=== PATIENT | female | born 1990 | race Caucasian/White ===

== ENCOUNTER 2017-01-31 00:17 | Emergency (ER) | payer BC ==
--- NOTE | 2017-01-31 01:42 | ED ---
Upper Extremity Pain - HPI Summary HPI Summary: Patient presents with right forearm pain after it was accidentally shut in the front door of her home three hours ago. The pain has increased and she has begun to notice swelling and bruising. She worries it is broken. Sensation is intact. - History of Current Complaint Chief Complaint: EDExtremityUpper Stated Complaint: RT ARM INJURY Time Seen by Provider: 01/31/17 01:32 Hx Obtained From: Patient Mechanism Of Injury: Blunt Trauma Onset/Duration: Started Hours Ago Timing: Constant Severity Initially: Severe Severity Currently: Severe Pain Location: Forearm - right Character: Sharp, Aching Aggravating Factor(s): Movement Alleviating Factor(s): Nothing Associated Signs & Symptoms: Positive: Swelling, Bruising Related History: Dominant Hand Right - Allergies/Home Medications Allergies/Adverse Reactions: Allergies Allergy/AdvReac Type Severity Reaction Status Date / Time No Known Allergies Allergy Verified 04/25/16 02:24 PMH/Surg Hx/FS Hx/Imm Hx Endocrine/Hematology History: Denies: Hx Diabetes, Hx Thyroid Disease Cardiovascular History: Denies: Hx Congestive Heart Failure, Hx Hypertension, Hx Pacemaker/ICD Respiratory History: Reports: Hx Asthma - athlectic induced as a child Denies: Hx Chronic Obstructive Pulmonary Disease (COPD) GI History: Denies: Hx Ulcer History: Denies: Hx Renal Disease Sensory History: Denies: Hx Hearing Aid Psychiatric History: Reports: Hx Anxiety Denies: Hx Panic Disorder Infectious Disease History: No Infectious Disease History: Denies: Hx Hepatitis, Hx Human Immunodeficiency Virus (HIV), Traveled Outside the [place] in Last 30 Days - Family History Known Family History: Positive: None Family History: R & n/C - Social History Occupation: Employed Full-time Lives: With Family Alcohol Use: None Hx Substance Use: No Substance Use Type: Reports: None Hx Tobacco Use: No Smoking Status (MU): Never Smoked Tobacco Review of Systems Positive: Myalgia, Edema - righ forearm Positive: Bruising Negative: Weakness, Paresthesia, Numbness All Other Systems Reviewed And Are Negative: Yes Physical Exam Triage Information Reviewed: Yes Vital Signs On Initial Exam: Initial Vitals Temp Pulse Resp BP Pulse Ox 98.6 F 94 18 99/72 99 01/31/17 00:22 01/31/17 00:22 01/31/17 00:22 01/31/17 00:22 01/31/17 00:22 Vital Signs Reviewed: Yes Appearance: Positive: Well-Appearing, Well-Nourished, Pain Distress Skin: Positive: Warm, Skin Color Reflects Adequate Perfusion, Dry, Soft Head/Face: Positive: Normal Head/Face Inspection Eyes: Positive: EOMI, CATHERINE, Conjunctiva Clear ENT: Positive: Hearing grossly normal Respiratory/Lung Sounds: Positive: Breath Sounds Present Cardiovascular: Positive: RRR Musculoskeletal: Positive: Strength/ROM Intact - FROM right elbow, wrist and hand, Pain @ - TTP dorsum of right mid forearm; pain with right wrist extension , Edema Right - dorsum of right mid forearm Neurological: Positive: Sensory/Motor Intact, Alert, Oriented to Person Place, Time, NV Bundle Intact Distally Psychiatric: Positive: Affect/Mood Appropriate AVPU Assessment: Alert Diagnostics - Vital Signs Vital Signs Temp Pulse Resp BP Pulse Ox 01/31/17 00:22 98.6 F 94 18 99/72 99 - Laboratory Lab Statement: Any lab studies that have been ordered have been reviewed, and results considered in the medical decision making process. - Radiology No standard instances Xray Interpretation: No Acute Changes Radiology Interpretation Completed By: Radiologist Course/Dx - Diagnoses Differential Diagnosis/HQI/PQRI: Positive: Arthritis, Bursitis, Contusion, Fracture (Closed), Hematoma, Strain, Sprain Provider Diagnoses: Contusion of right forearm Discharge - Discharge Plan Condition: Stable Disposition: HOME Patient Education Materials: Contusion in Adults (ED) Forms: *Work Release Referrals: Darlyn Garcia MD [Primary Care Provider] - Additional Instructions: Please use ibuprofen 600mg three times daily with meals for the next 3-5 days and elevate your arm above your heart to decrease swelling and pain. Use your arm as pain allows. Follow-up with your primary care provider if your symptoms do not begin to improve in then next 7-10 days. Return to the emergency department if symptoms worsen.
[2017-01-31 02:05] VITALS: BP 101/68
--- NOTE | 2017-01-31 07:52 | RAD ---
INDICATION: Right forearm bruising after getting arm "caught in a door" TECHNIQUE: 2 views of the right forearm were obtained. FINDINGS: The bones are normal alignment. Joint spaces appear maintained. No fracture is seen. IMPRESSION: No radiographic evidence of acute fracture or dislocation. If the patient's symptoms persist, follow-up imaging is recommended.
== END 2017-01-31 02:03 | disposition home or self-care (01) ==
LOC: ED 00:17
DX: S50.11XA Contusion of right forearm, initial encounter (principal); M79.631 Pain in right forearm; R60.0 Localized edema; W22.8XXA Striking against or struck by other objects, initial encounter; Y93.9 Activity, unspecified; Y92.89 Other specified places as the place of occurrence of the external cause
CPT/HCPCS: 99281

== ENCOUNTER 2017-04-25 19:05 | Emergency (ER) | payer BC ==
[2017-04-25 19:18] VITALS: BP 110/77
== END 2017-04-25 20:35 | disposition left against medical advice (07) ==
LOC: ED 19:05
DX: R51 Headache (principal); R21 Rash and other nonspecific skin eruption; Z53.21 Procedure and treatment not carried out due to patient leaving prior to being seen by health care provider

== ENCOUNTER 2017-05-09 20:27 | Observation (INO) | payer BC, OTHER ==
[2017-05-09] MEDS ORDERED: Acetaminophen TAB* 325 MG PO ONE (20:58)
[2017-05-09] MEDS ORDERED: NS 0.9% 1000 ML* 1,000 ML IV ONE (20:58)
[2017-05-09] MEDS: Ondansetron INJ* 2 MG/ML VIAL IV ONE ×3 (21:26→21:34)
--- NOTE | 2017-05-09 21:31 | ED ---
I, Oh,Adithya, scribed for Elijah Silvestre MD on 05/09/17 at 2059 . HPI Febrile Illness - HPI Summary HPI Summary: This 26 y/o female presents to ED for fever this morning. Positive chills, general myalgia, nausea, low back pain, and 2-days-old intermittent GUTIERREZ. Pt took APAP this morning and again this afternoon without much relief. Elevated temperature of 103.4 F is noted at triage. PMHx includes exercise-induced asthma as a child and with . Plan of care involving fever control and NS resuscitation is discussed with pt and mother present at bedside, and she is agreeable. - History of Current Complaint Chief Complaint: EDGeneral Time Seen by Provider: 05/09/17 20:52 Hx Obtained From: Patient, Medical Records Onset/Duration: Started Hours Ago, Atraumatic, Still Present Timing: Constant Pain Intensity: 10 Pain Scale Used: 0-10 Numeric Associated Signs and Symptoms: Chills, Headache, Myalgia - general, Nausea, Other: - back pain - Allergy/Home Medications Allergies/Adverse Reactions: Allergies Allergy/AdvReac Type Severity Reaction Status Date / Time No Known Allergies Allergy Verified 04/25/16 02:24 PMH/Surg Hx/FS Hx/Imm Hx Endocrine/Hematology History: Denies: Hx Diabetes, Hx Thyroid Disease Cardiovascular History: Denies: Hx Congestive Heart Failure, Hx Hypertension, Hx Pacemaker/ICD Respiratory History: Reports: Hx Asthma - athlectic induced as a child Denies: Hx Chronic Obstructive Pulmonary Disease (COPD) GI History: Denies: Hx Ulcer History: Denies: Hx Renal Disease Sensory History: Denies: Hx Hearing Aid Psychiatric History: Reports: Hx Anxiety Denies: Hx Panic Disorder Infectious Disease History: Denies: Hx Hepatitis, Hx Human Immunodeficiency Virus (HIV), Traveled Outside the [place] in Last 30 Days - Family History Known Family History: Positive: Hypertension - positive to grandfather - Social History Alcohol Use: None Hx Substance Use: No Substance Use Type: Reports: None Hx Tobacco Use: No Smoking Status (MU): Never Smoked Tobacco Review of Systems Positive: Fever, Chills Positive: Nausea. Negative: Vomiting Positive: Myalgia - general, Other - low back pain Positive: Headache All Other Systems Reviewed And Are Negative: Yes Physical Exam Triage Information Reviewed: Yes Vital Signs On Initial Exam: Initial Vitals Temp Pulse Resp BP Pulse Ox 103.4 F 127 18 98/59 97 05/09/17 20:30 05/09/17 20:30 05/09/17 20:30 05/09/17 20:30 05/09/17 20:30 Vital Signs Reviewed: Yes Appearance: Positive: Well-Appearing, No Pain Distress Skin: Positive: Warm, Dry Eyes: Positive: CATHERINE ENT: Positive: Pharynx normal, TMs normal Neck: Positive: Supple, Nontender. Negative: Nuchal Rigidity Respiratory/Lung Sounds: Positive: Clear to Auscultation, Breath Sounds Present Cardiovascular: Positive: RRR Abdomen Description: Positive: Nontender, Soft Bowel Sounds: Positive: Present Musculoskeletal: Positive: Strength/ROM Intact Neurological: Positive: Alert, Oriented to Person Place, Time, Normal Gait Psychiatric: Positive: Affect/Mood Appropriate Diagnostics - Vital Signs Vital Signs Temp Pulse Resp BP Pulse Ox 05/09/17 20:30 103.4 F 127 18 98/59 97 - Laboratory Result Diagrams: 05/09/17 21:20 05/09/17 21:20 Lab Statement: Any lab studies that have been ordered have been reviewed, and results considered in the medical decision making process. - Radiology CXR Xray Interpretation: No Acute Changes - Likely poor inspiratory effort Radiology Interpretation Completed By: Radiologist Re-Evaluation - Re-Evaluation First Eval Change: Improved - fever down hr down though still hyporensive, non toxic appearing, d/w hospitalist, will admit Course/Dx - Course Assessment/Plan: This 26 y/o female presents to ED for a day old fever since this morning. Elevated temperature of 103.4 F is noted at triage. Blood work is wnl except for elevated blood glucose of 134 and mildly depressed magnesium level. CXR indicates no acute cardiopulmonary disease but notes poor inspiratory effort. Rapid strep is negative. Pt is given APAP, IV NS, and Zofran IV during the ED course. Temperature is improved down to 98.4 F at 0428 AM but blood pressure is noted hypotensive with 83/43. Hypotensive blood pressure still persists even after 4th Liter of NS IV. Dr. Clark is consulted, and pt is accepted for admission. - Diagnoses Provider Diagnoses: Viral illness - Provider Notifications Discussed Care Of Patient With: Vinod Clark Time Discussed With Above Provider: 05:07 Instructed by Provider To: Admit As Inpatient Discharge - Discharge Plan Condition: Fair Disposition: ADMITTED TO [facility] The documentation as recorded by the Milad mcnally Soohyun accurately reflects the service I personally performed and the decisions made by me, Elijah Silvestre MD.
[2017-05-09 21:34] LABS: Hematocrit 38 % (35-47); Hemoglobin 12.9 g/dl (12.0-16.0); Mean Corpuscular HGB Conc 34 g/dl (31-36); Mean Corpuscular Hemoglobin 29 pg (27-31); Mean Corpuscular Volume 86 fL (80-97); Mean Platelet Volume 9 um3 (7.4-10.4); Red Blood Count 4.43 10^6/ul (4.0-5.4); Red Cell Distribution Width 13 % (10.5-15)
[2017-05-09 21:41] LABS: ALT 9 U/L (7-52); AST 16 U/L (13-39); Albumin 3.7 g/dL (3.2-5.2); Alkaline Phosphatase 35 U/L (34-104); Anion Gap 7 mmol/L (2-11); BUN/Creatinine Ratio 9.9 (8-20); Blood Urea Nitrogen 9 mg/dL (6-24); CO2 Carbon Dioxide 24 mmol/L (22-32); Calcium 8.8 mg/dL (8.6-10.3); Chloride 102 mmol/L (101-111); EGFR African American 96.9 (>60); EGFR Non-African American 75.3 (>60); Globulin 3.5 g/dL (2-4); Glucose 134 mg/dL (70-100); Magnesium 1.8 mg/dL (1.9-2.7); Potassium 3.2 mmol/L (3.5-5.0); Sodium 133 mmol/L (133-145); Total Protein 7.2 g/dL (6.4-8.9)
--- NOTE | 2017-05-09 22:01 | RAD ---
Indication: Fever. 2 views of the chest including dual energy PA views demonstrate no mediastinal shift. Heart is of normal size and configuration. Lung martinez are clear. There is likely poor inspiratory effort with prominent vasculature. When compared to previous exam of September 20, 2013 no significant change is noted. IMPRESSION: No active cardiopulmonary disease is noted. Likely poor inspiratory effort.
[2017-05-09 23:20] LABS: Urine Bilirubin Negative (Negative); Urine Glucose Negative (Negative); Urine Nitrite Negative (Negative)
[2017-05-10] MEDS ORDERED: Ibuprofen TAB* 600 MG PO ONE (00:03)
[2017-05-10] MEDS ORDERED: Ibuprofen TAB* 600 MG ONE (00:04)
[2017-05-10] MEDS ORDERED: NS 0.9% 1000 ML* 1,000 ML IV ONE ×3 (00:10→03:11)
[2017-05-10] MEDS ORDERED: Acetaminophen TAB* 325 MG PO ONE (03:11)
[2017-05-10] MEDS ORDERED: Magnesium Sulfate 2 GM IV* 2 GM/50 ML BAG IVPB ONE (05:33)
[2017-05-10] MEDS ORDERED: Ondansetron INJ* 2 MG/ML VIAL IV PRN (05:34)
[2017-05-10] MEDS ORDERED: Acetaminophen TAB* 325 MG PO PRN (05:34)
[2017-05-10] MEDS ORDERED: Melatonin (NF) 3 MG TAB PO PRN (05:34)
[2017-05-10] MEDS ORDERED: traMADol TAB* 50 MG PO PRN (05:34)
[2017-05-10] MEDS ORDERED: Ibuprofen TAB* 400 MG PO PRN (05:35)
[2017-05-10] MEDS ORDERED: NS 0.9% 1000 ML* 1,000 ML IV SCH (05:45)
--- NOTE | 2017-05-10 05:46 | HP ---
H&P (Free Text) History and Physical: PCP: Mukesh Garcia MD Date/Time of Evaluation: 05/10/2017 0520 CC: malaise HPI: Mrs Valentin is a 26YO female HX migraines who began feeling poorly with a diffuse dull headache 3 days ago without photophobia or exacerbating/ alleviating factors. Yesterday she began having subjective F/C, light sweats, nausea without emesis, malaise, and fatigue. She denies cough, congestion, SOB, B/U/F of urine, changes in bowel/bladder, open wound, rash, or other issues. She denies known sick contacts. This headache is different from her usual in that it is persistent. PMedHx migraines/headaches Ambulatory Orders Nursing to reconcile. Allergies No Known Allergies Allergy (Verified 04/25/16 02:24) PSurgHx section SocHx: no tobacco, alcohol, or recreational drugs; works at [employer]; full code status FamHx: denies ROS: as above, otherwise reviewed and all were negative Constitutional: NAD, normally developed, well-nourished white female vitals: Vital Signs Temp 36.9 C 05/10/17 04:28 Pulse 92 05/10/17 05:00 Resp 14 05/10/17 04:28 BP 86/48 05/10/17 05:00 Pulse Ox 98 05/10/17 05:00 Intake & Output 05/09/17 05/09/17 05/10/17 11:59 23:59 11:59 Intake Total 1000 2000 Balance 1000 1999 Weight 61.235 kg Intake: IV Fluids 1000 1999 HEENM: atraumatic; sclera/conjunctiva: non-icteric/clear; blephara: normal; hearing: clinically intact; oropharynx: clear, mucosa tacky Neck: soft tissue: no nuchal rigidity, no cervical muscle tenderness, full painless ROM of C-spine; thyroid: normal Pulmonary: clear to auscultation bilaterally, good aeration, no accessory muscle use CV: RR/RR, normal S1S2, no carotid bruit, no jugular venous distention, 2+ B DP/ PT, no edema Abdominal: soft, non-distended, non-tender, no rebound/guarding/rigidity, normoactive bowel sounds, no hepatosplenomegaly or masses, no costovertebral angle tenderness Musculoskeletal: general: grossly intact; gait: stable Integumental: normal appearance and texture of exposed skin Psychiatric orientation: AA&O to PPS affect: fatigued mood: cooperarative eye contact: good content: reliable responses: timely insight: good Testing: Lab Results 05/09/17 05/09/17 05/09/17 Range/Units 21:20 21:20 21:20 WBC 9.0 (3.5-10.8) 10^3/ul RBC 4.43 (4.0-5.4) 10^6/ul Hgb 12.9 (12.0-16.0) g/dl Hct 38 (35-47) % MCV 86 (80-97) fL MCH 29 (27-31) pg MCHC 34 (31-36) g/dl RDW 13 (10.5-15) % Plt Count 208 (150-450) 10^3/ul MPV 9 (7.4-10.4) um3 Neut % (Auto) 87.4 H (38-83) % Lymph % (Auto) 3.2 L (25-47) % Brooks % (Auto) 9.0 (1-9) % Eos % (Auto) 0.1 (0-6) % Baso % (Auto) 0.3 (0-2) % Absolute Neuts (auto) 7.9 H (1.5-7.7) 10^3/ul Absolute Lymphs (auto) 0.3 L (1.0-4.8) 10^3/ul Absolute Monos (auto) 0.8 (0-0.8) 10^3/ul Absolute Eos (auto) 0 (0-0.6) 10^3/ul Absolute Basos (auto) 0 (0-0.2) 10^3/ul Absolute Nucleated RBC 0 10^3/ul Nucleated RBC % 0 Sodium 133 (133-145) mmol/L Potassium 3.2 L (3.5-5.0) mmol/L Chloride 102 (101-111) mmol/L Carbon Dioxide 24 (22-32) mmol/L Anion Gap 7 (2-11) mmol/L BUN 9 (6-24) mg/dL Creatinine 0.91 (0.51-0.95) mg/dL Est GFR ( Amer) 96.9 (>60) Est GFR (Non-Af Amer) 75.3 (>60) BUN/Creatinine Ratio 9.9 (8-20) Glucose 134 H (70-100) mg/dL Lactic Acid 1.0 (0.5-2.0) mmol/L Calcium 8.8 (8.6-10.3) mg/dL Magnesium 1.8 L (1.9-2.7) mg/dL Total Bilirubin 0.50 (0.2-1.0) mg/dL AST 16 (13-39) U/L ALT 9 (7-52) U/L Alkaline Phosphatase 35 (34-104) U/L Total Protein 7.2 (6.4-8.9) g/dL Albumin 3.7 (3.2-5.2) g/dL Globulin 3.5 (2-4) g/dL Albumin/Globulin Ratio 1.1 (1-3) Beta HCG, Quant < 0.60 mIU/mL Urine Color Urine Appearance Urine pH (5-9) Ur Specific [place] (1.010-1.030) Urine Protein (Negative) Urine Ketones (Negative) Urine Blood (Negative) Urine Nitrate (Negative) Urine Bilirubin (Negative) Urine Urobilinogen (Negative) Ur Leukocyte Esterase (Negative) Urine Glucose (Negative) Group A Strep Rapid (Negative) 05/09/17 05/09/17 Range/Units 23:05 23:08 WBC (3.5-10.8) 10^3/ul RBC (4.0-5.4) 10^6/ul Hgb (12.0-16.0) g/dl Hct (35-47) % MCV (80-97) fL MCH (27-31) pg MCHC (31-36) g/dl RDW (10.5-15) % Plt Count (150-450) 10^3/ul MPV (7.4-10.4) um3 Neut % (Auto) (38-83) % Lymph % (Auto) (25-47) % Brooks % (Auto) (1-9) % Eos % (Auto) (0-6) % Baso % (Auto) (0-2) % Absolute Neuts (auto) (1.5-7.7) 10^3/ul Absolute Lymphs (auto) (1.0-4.8) 10^3/ul Absolute Monos (auto) (0-0.8) 10^3/ul Absolute Eos (auto) (0-0.6) 10^3/ul Absolute Basos (auto) (0-0.2) 10^3/ul Absolute Nucleated RBC 10^3/ul Nucleated RBC % Sodium (133-145) mmol/L Potassium (3.5-5.0) mmol/L Chloride (101-111) mmol/L Carbon Dioxide (22-32) mmol/L Anion Gap (2-11) mmol/L BUN (6-24) mg/dL Creatinine (0.51-0.95) mg/dL Est GFR ( Amer) (>60) Est GFR (Non-Af Amer) (>60) BUN/Creatinine Ratio (8-20) Glucose (70-100) mg/dL Lactic Acid (0.5-2.0) mmol/L Calcium (8.6-10.3) mg/dL Magnesium (1.9-2.7) mg/dL Total Bilirubin (0.2-1.0) mg/dL AST (13-39) U/L ALT (7-52) U/L Alkaline Phosphatase (34-104) U/L Total Protein (6.4-8.9) g/dL Albumin (3.2-5.2) g/dL Globulin (2-4) g/dL Albumin/Globulin Ratio (1-3) Beta HCG, Quant mIU/mL Urine Color Yellow Urine Appearance Clear Urine pH 6.0 (5-9) Ur Specific [place] 1.012 (1.010-1.030) Urine Protein Negative (Negative) Urine Ketones Trace H (Negative) Urine Blood Negative (Negative) Urine Nitrate Negative (Negative) Urine Bilirubin Negative (Negative) Urine Urobilinogen Negative (Negative) Ur Leukocyte Esterase Negative (Negative) Urine Glucose Negative (Negative) Group A Strep Rapid Negative (Negative) CXR, personally reviewed: IMPRESSION: No active cardiopulmonary disease is noted. Likely poor inspiratory effort. Impression: 26F presenting with what appears a viral syndrome with hypovolemia and 2nd hypotension/tachycardia DIAGNOSIS & PLAN Primary viral syndrome with hypovolemia and 2nd hypotension/tachycardia : IVFs : anti-emetics : monitor : supportive care headache : pain control Admission Rational: observation for dehydration refractory to initial IVFs DVTp: MARGO Code Status: full
[2017-05-10] MEDS: Omeprazole CAP* 20 MG PO SCH (06:09)
[2017-05-10] MEDS: Potassium Chlor TAB* 20 MEQ TAB.ER PO SCH ×3 (06:09→16:28)
[2017-05-10 06:53] LABS: Hematocrit 32 % (35-47); Hemoglobin 11.2 g/dl (12.0-16.0); Mean Corpuscular HGB Conc 35 g/dl (31-36); Mean Corpuscular Hemoglobin 31 pg (27-31); Mean Corpuscular Volume 87 fL (80-97); Mean Platelet Volume 8 um3 (7.4-10.4); Red Blood Count 3.68 10^6/ul (4.0-5.4); Red Cell Distribution Width 13 % (10.5-15); White Blood Count 8.1 10^3/ul (3.5-10.8)
[2017-05-10 07:40] LABS: BUN/Creatinine Ratio 9.6 (8-20); Calcium 7.5 mg/dL (8.6-10.3); EGFR African American 124.9 (>60); EGFR Non-African American 97.1 (>60); Potassium 3.4 mmol/L (3.5-5.0)
[2017-05-10] MEDS: NS 0.9% 1000 ML* 1,000 ML IV SCH (08:34)
--- NOTE | 2017-05-10 09:54 | PN ---
Subjective Date of Service: 05/10/17 Interval History: Ate breakfast, no more nausea. Headache somewhat better. Some chills and sweats last night. Not dizzy or lightheaded while walking. Objective Active Medications: Acetaminophen (Tylenol Tab*) 650 mg PO Q6H PRN PRN Reason: FEVER/PAIN Sodium Chloride (Ns 0.9% 1000 Ml*) 1,000 mls @ 50 mls/hr IV PER RATE [facility] Last Admin: 05/10/17 08:34 Dose: 50 mls/hr Ibuprofen (Motrin Tab*) 400 mg PO Q6H PRN PRN Reason: FEVER/PAIN Omeprazole (Prilosec Cap*) 20 mg PO DAILY@0600 [facility] Last Admin: 05/10/17 06:09 Dose: 20 mg Ondansetron HCl (Zofran Inj*) 4 mg IV Q6H PRN PRN Reason: NAUSEA Potassium Chloride (Klor Con Er Tab*) 40 meq PO Q4H [facility] Stop: 05/10/17 10:01 Last Admin: 05/10/17 06:09 Dose: 40 meq Tramadol HCl (Ultram*) 50 mg PO Q6H PRN PRN Reason: PAIN Vital Signs 05/10/17 05/10/17 05/10/17 05:48 06:09 08:00 Temperature 98.4 F 98.4 F Pulse Rate 84 84 Respiratory 16 16 16 Rate Blood Pressure 83/55 83/55 (mmHg) O2 Sat by Pulse 98 91 Oximetry Oxygen Devices in Use Now: None Appearance: Alert, partly up in bed. In good spirits. Looks comfortable. Eyes: No Scleral Icterus Neck: NL Appearance and Movements; NL JVP, No Thyroid Enlargement, Masses Respiratory: Symmetrical Chest Expansion and Respiratory Effort, Clear to Auscultation, Clear to Percussion Cardiovascular: NL Sounds; No Murmurs; No JVD, RRR, No Edema, - Abdominal: NL Sounds; No Tenderness; No Distention, No Hepatosplenomegaly, - Extremities: No Edema, No Clubbing, Cyanosis, - Skin: No Nodules or Sclerosis, - - BL malar rash Neurological: Alert and Oriented x 3, NL Sensation Result Diagrams: 05/10/17 06:37 05/10/17 06:37 Assess/Plan/Problems-Billing Assessment: - Patient Problems (1) Fever Current Visit: Yes Status: Acute Code(s): R50.9 - FEVER, UNSPECIFIED SNOMED Code(s): 318004439 Comment: Likely viral illness with viral exanthem. Continue supportive care. Add on Lyme serology requested. (2) Migraine Current Visit: Yes Status: Acute Code(s): G43.909 - MIGRAINE, UNSP, NOT INTRACTABLE, WITHOUT STATUS MIGRAINOSUS SNOMED Code(s): 41840642 Comment: Relatively mild, only uses APAP at home, may be other type of headache.
[2017-05-10 14:53] LABS: EBV Response NO
[2017-05-10 16:44] LABS: Mono Internal Control QC Line Present
[2017-05-11] MEDS: NS 0.9% 1000 ML* 1,000 ML IV SCH (04:13)
[2017-05-11] MEDS: Omeprazole CAP* 20 MG PO SCH (05:59)
[2017-05-11 08:09] VITALS: BP 90/53
--- NOTE | 2017-05-11 08:23 | DCNOTE ---
Subjective Date of Service: 05/11/17 Interval History: Still some sore throat but eats OK. No new c/o, anxius to go home. Objective Active Medications: Acetaminophen (Tylenol Tab*) 650 mg PO Q6H PRN PRN Reason: FEVER/PAIN Last Admin: 05/11/17 00:27 Dose: 650 mg Sodium Chloride (Ns 0.9% 1000 Ml*) 1,000 mls @ 50 mls/hr IV PER RATE [facility] Last Admin: 05/11/17 04:13 Dose: 50 mls/hr Ibuprofen (Motrin Tab*) 400 mg PO Q6H PRN PRN Reason: FEVER/PAIN Last Admin: 05/10/17 16:27 Dose: 400 mg Omeprazole (Prilosec Cap*) 20 mg PO DAILY@0600 [facility] Last Admin: 05/11/17 05:59 Dose: 20 mg Ondansetron HCl (Zofran Inj*) 4 mg IV Q6H PRN PRN Reason: NAUSEA Last Admin: 05/10/17 16:28 Dose: 4 mg Tramadol HCl (Ultram*) 50 mg PO Q6H PRN PRN Reason: PAIN Vital Signs 05/10/17 05/10/17 05/10/17 11:27 15:52 18:40 Temperature 99.0 F 99.5 F 99.8 F Pulse Rate 95 106 Respiratory 16 16 Rate Blood Pressure 91/57 93/56 (mmHg) O2 Sat by Pulse 98 99 Oximetry 05/10/17 05/10/17 05/11/17 19:25 23:32 00:31 Temperature 98.3 F 100.0 F Pulse Rate 89 92 Respiratory 24 16 Rate Blood Pressure 94/56 81/42 82/42 (mmHg) O2 Sat by Pulse 99 99 Oximetry 05/11/17 05/11/17 04:04 08:08 Temperature 97.8 F 98.5 F Pulse Rate 76 76 Respiratory 16 18 Rate Blood Pressure 90/54 90/53 (mmHg) O2 Sat by Pulse 100 99 Oximetry Oxygen Devices in Use Now: None Appearance: Alert, sitting up in bed. In good spirits. Looks comfortable. Eyes: No Scleral Icterus Ears/Nose/Mouth/Throat: Clear Oropharnyx, Mucous Membranes Moist Extremities: No Edema, No Clubbing, Cyanosis Skin: No Nodules or Sclerosis, - - Malar rash less prominent today. Neurological: Alert and Oriented x 3, NL Sensation Result Diagrams: 05/10/17 06:37 05/10/17 06:37 Assess/Plan/Problems-Billing Assessment: - Patient Problems (1) Fever Current Visit: Yes Status: Acute Code(s): R50.9 - FEVER, UNSPECIFIED SNOMED Code(s): 338660806 Comment: Likely viral illness with viral exanthem. Lyme serology pending. Monoscreen neg. (2) Migraine Current Visit: Yes Status: Acute Code(s): G43.909 - MIGRAINE, UNSP, NOT INTRACTABLE, WITHOUT STATUS MIGRAINOSUS SNOMED Code(s): 98302916 Comment: Relatively mild, only uses APAP at home, may be other type of headache. Status and Disposition: Discharge now. Fup Dr. Garcia.
--- NOTE | 2017-05-11 13:03 | DS ---
CC: Dr. Garcia* DISCHARGE SUMMARY: DATE OF ADMISSION: 05/10/17 DATE OF DISCHARGE: 05/11/17 HISTORY: This 26-year-old woman presented with a dull headache and malaise. She had some fever, chills, sweats, and nausea at home. In the hospital, she developed a sore throat. Her temperature was high, was 103.4 on arrival on the medical holguin. For the last 24 hours in the hospital, the highest temperature was 100.0. She had a sore throat at the time of discharge, but her headache and nausea had resolved. Swab for rapid strep was negative. [place] screen was negative. The Lyme serology was sent out is pending. FINAL DIAGNOSES: 1. Upper respiratory infection, improved. 2. History of migraine and/or recurrent nonspecific headaches. DISCHARGE MEDICATIONS: No prescription medications are listed. [id number]/[facility] #: [id number] MTDD
== END 2017-05-11 10:00 | disposition home or self-care (01) ==
LOC: ED 20:27 → MED 05-10 05:42
PROVIDERS: ADMIT Hospitalist; ATTEND Internal Medicine
DX: J06.9 Acute upper respiratory infection, unspecified (principal); R51 Headache; R50.9 Fever, unspecified; E86.1 Hypovolemia; I95.9 Hypotension, unspecified; R00.0 Tachycardia, unspecified; Z32.02 Encounter for pregnancy test, result negative
CPT/HCPCS: 36415; 71020; 80048; 80053; 81003; 82533; 83605; 83735; 84702; 85025; 85027; 86308; 86618; 87651; 96361; 96365; 96375; 96376; 99285; A9270-GY; G0378; J2405

== ENCOUNTER 2018-03-22 08:15 | Emergency (ER) | payer OTHER ==
[2018-03-22] MEDS ORDERED: Ketorolac INJ* 30 MG/ML 1 ML VIAL IV PUSH ONE (08:37)
[2018-03-22] MEDS ORDERED: diPHENhydraMINE IV* 25 MG in NS 0.9% 50 ML* 50 ML IVPB ONE (08:37)
[2018-03-22] MEDS ORDERED: NS 0.9% 1000 ML* 1,000 ML IV ONE (08:37)
[2018-03-22] MEDS ORDERED: diPHENhydraMINE IV* 50 MG/ML 1 ml VIAL (BENADRYL) ONE (08:41)
--- NOTE | 2018-03-22 08:44 | ED ---
Headache - HPI Summary HPI Summary: Pt. is a 27 y.o female who presents to the ER for a headache. Pt. states she woke up with headache. She notes history of migraines. 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 Associated symptoms of nausea, blurry vision, tingling to face and bilateral hands. She denies recent illness, fever, neck pain. Symptoms are moderate in severity. Light and noise make symptoms worse. Nothing makes symptoms better. No past medical history. - History Of Current Complaint Chief Complaint: EDHeadache Stated Complaint: HEADACHE Time Seen by Provider: 03/22/18 08:24 Hx Obtained From: Patient - Allergies/Home Medications Allergies/Adverse Reactions: Allergies Allergy/AdvReac Type Severity Reaction Status Date / Time drospirenone Allergy Headache Verified 03/22/18 09:55 [From Michaelle ([id number])] ethinyl estradiol Allergy Headache Verified 03/22/18 09:55 [From Michaelle (28)] CECLOR Allergy Rash Uncoded 03/22/18 09:54 MACROBID Allergy Nausea And Uncoded 03/22/18 09:55 Vomiting Home Medications: Home Medications Nuvaring 1 vag ring VAGINAL MONTHLY 03/22/18 [History Confirmed 03/22/18] PMH/Surg Hx/FS Hx/Imm Hx Previously Healthy: Yes Endocrine/Hematology History: Denies: Hx Diabetes, Hx Thyroid Disease Cardiovascular History: Denies: Hx Congestive Heart Failure, Hx Hypertension, Hx Pacemaker/ICD Respiratory History: Reports: Hx Asthma - athlectic induced as a child Denies: Hx Chronic Obstructive Pulmonary Disease (COPD) GI History: Denies: Hx Ulcer History: Denies: Hx Renal Disease Sensory History: Denies: Hx Contacts or Glasses, Hx Hearing Aid Opthamlomology History: Denies: Hx Contacts or Glasses Psychiatric History: Reports: Hx Anxiety Denies: Hx Panic Disorder Infectious Disease History: Yes Infectious Disease History: Denies: Hx Hepatitis, Hx Human Immunodeficiency Virus (HIV), Traveled Outside the [place] in Last 30 Days - Family History Known Family History: Positive: None, Hypertension - positive to grandfather Family History: R & n/C - Social History Occupation: Employed Full-time Lives: With Family Alcohol Use: None Hx Substance Use: No Substance Use Type: Reports: None Hx Tobacco Use: No Smoking Status (MU): Never Smoked Tobacco Review of Systems Constitutional: Negative Negative: Fever, Chills Positive: Blurred Vision ENT: Negative Cardiovascular: Negative Respiratory: Negative Gastrointestinal: Negative Positive: Nausea. Negative: Abdominal Pain, Vomiting, Diarrhea Genitourinary: Negative Musculoskeletal: Negative Skin: Negative Positive: Headache All Other Systems Reviewed And Are Negative: Yes Physical Exam Triage Information Reviewed: Yes Vital Signs On Initial Exam: Initial Vitals Temp Pulse Resp BP Pulse Ox 98 F 72 16 108/67 98 03/22/18 08:17 03/22/18 08:17 03/22/18 08:17 03/22/18 08:17 03/22/18 08:17 Vital Signs Reviewed: Yes Appearance: Positive: Well-Appearing - Pt. lying in a dark room in NAD. Mother present. Skin: Positive: Dry Head/Face: Positive: Normal Head/Face Inspection Eyes: Positive: Normal, EOMI, CATHERINE Neck: Positive: Supple. Negative: Nuchal Rigidity Musculoskeletal: Positive: Normal, Strength/ROM Intact Neurological: Positive: Normal, CN Intact II-III, Normal Gait, Finger to Nose - normal, Facial Symmetry, Speech Normal. Negative: Abnormal Gait, Cerebellar Dysfunction, Facial Droop AVPU Assessment: Alert - Yudi Coma Scale Best Eye Response: 4 - Spontaneous Best Motor Response: 6 - Obeys Commands Best Verbal Response: 5 - Oriented Coma Scale Total: 15 Diagnostics - Vital Signs Vital Signs Temp Pulse Resp BP Pulse Ox 03/22/18 08:17 98 F 72 16 108/67 98 - Laboratory Lab Statement: Any lab studies that have been ordered have been reviewed, and results considered in the medical decision making process. Headache Course/Dx - Course Course Of Treatment: Pt. presenting with likely migraine headache. She is afebrile with stable vital signs. She has no neuro deficits on exam. Will give migraine cocktail and reassess. On re-exam pt. sleeping comfortably and headache is improving. She is requesting to be d/c. Also requesting neurology info. To f.u with PCP or neuro. To return to ER if symptoms change or worsen. Work excuse given. - Diagnoses Differential Diagnosis/HQI/PQRI: Meningitis, Migraine, Sinus Headache, Tension Headache, Viral Syndrome Provider Diagnoses: Migraine Discharge - Sign-Out/Discharge Documenting (check all that apply): Discharge/Admit/Transfer - Discharge Plan Condition: Good Disposition: HOME Patient Education Materials: Migraine Headache (ED) Forms: *Work Release Referrals: Elijah Gonzalez MD [Medical Doctor] - Darlyn Garcia MD [Primary Care Provider] - Additional Instructions: Schedule a follow up appointment with your PCP or neurology Return to ER if symptoms change or worsen - Billing Disposition and Condition Condition: GOOD Disposition: HOME
[2018-03-22] MEDS ORDERED: PROCHLORPERAZINE INJ 5 MG/ML 2 ML VIAL IV ONE (08:50)
[2018-03-22 09:58] VITALS: BP 105/65
== END 2018-03-22 10:11 | disposition home or self-care (01) ==
LOC: ED 08:15
DX: G43.909 Migraine, unspecified, not intractable, without status migrainosus (principal); Z88.8 Allergy status to other drugs, medicaments and biological substances
CPT/HCPCS: 96361; 96374; 96375; 99283; J0780; J1200; J1885

== ENCOUNTER 2018-05-06 21:14 | Emergency (ER) | payer OTHER ==
[2018-05-06 21:38] VITALS: BP 120/79
--- NOTE | 2018-05-07 15:01 | UC ---
Complaint Female HPI - HPI Summary HPI Summary: Patient accompanied by friend, states she started to have bloody urine since this morning. She feels some burning with urination but no frequency and can wait to void until bladder is full. She denies flank pain, chills, fever, vomiting or diarrhea. She denies PMH of urolithiasis. She states about a month ago she had blood in urine as well and went for medical consultation and was told she did not have a UTI. She has not seen his PCP and has not consulted with him for this problem. Denies onset of symptoms after intercourse. 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 - History Of Current Complaint Chief Complaint: UCGU Stated Complaint: BLOOD IN URINE,NAUSEA Time Seen by Provider: 05/06/18 21:41 Hx Obtained From: Patient, Other: - friend Hx Last Menstrual Period: 04/20/18 ?: No Onset/Duration: Sudden Onset, Lasting Days Timing: Intermittent Severity Initially: Mild Severity Currently: Mild Pain Intensity: 3 Pain Scale Used: 0-10 Numeric Character: Burning Aggravating Factor(s): Urination Alleviating Factor(s): Nothing Associated Signs And Symptoms: Positive: Negative - Risk Factors Ectopic Risk Factor: Negative Ovarian Torsion Risk Factor: Negative - Allergies/Home Medications Allergies/Adverse Reactions: Allergies Allergy/AdvReac Type Severity Reaction Status Date / Time No Known Allergies Allergy Verified 05/06/18 21:30 PMH/Surg Hx/FS Hx/Imm Hx Previously Healthy: Yes - Surgical History Surgical History: Yes Surgery Procedure, Year, and Place: 2014 - Family History Known Family History: Positive: None, Hypertension - positive to grandfather Family History: R & n/C - Social History Alcohol Use: None Substance Use Type: None Smoking Status (MU): Never Smoked Tobacco - Immunization History Most Recent Influenza Vaccination: 08/18/15 Most Recent Tetanus Shot: 07/14/15 Most Recent Pneumonia Vaccination: na Review of Systems Genitourinary: Dysuria, Hematuria Motor: Negative All Other Systems Reviewed And Are Negative: Yes Physical Exam Triage Information Reviewed: Yes Appearance: Well-Appearing, No Pain Distress, Well-Nourished Vital Signs: Initial Vital Signs Temp 97.7 F 05/06/18 21:31 Pulse 77 05/06/18 21:31 Resp 16 05/06/18 21:31 BP 120/79 05/06/18 21:31 Pulse Ox 100 05/06/18 21:31 Vital Signs Reviewed: Yes Eyes: Positive: Conjunctiva Clear ENT: Positive: Hearing grossly normal, Pharynx normal Neck: Positive: Supple, Nontender, No Lymphadenopathy Respiratory: Positive: Chest non-tender, Lungs clear, Normal breath sounds, No respiratory distress Cardiovascular: Positive: RRR, No Murmur, Pulses Normal, Brisk Capillary Refill Abdomen Description: Positive: Nontender, No Organomegaly, Soft Bowel Sounds: Positive: Present Musculoskeletal: Positive: Strength Intact, ROM Intact, No Edema Complaint Female Dx - Course Course Of Treatment: Patient gives history of hematuria, urine analysis shows trace blood, no leukocytes, no nitrates. Patient does not have any acute pain at this point , no CVAT, advised to follow up with PCP for further work up, renal and bladder sonogram. Discussed with patient differential diagnosis, and instructed to continue consistent and generous oral hydration - Differential Dx/Diagnosis Provider Diagnoses: Hematuria Discharge - Sign-Out/Discharge Documenting (check all that apply): Discharge/Admit/Transfer - Discharge Plan Condition: Good Disposition: HOME Patient Education Materials: Hematuria (ED) Referrals: Darlyn Garcia MD [Primary Care Provider] - - Billing Disposition and Condition Condition: GOOD Disposition: Home
--- NOTE | 2018-05-09 17:20 | UC ---
- Progress Note Progress Note: URINE CULTURE WITH 25-50,000 CFU/ML E. COLI. NUMBER OF COLONIES IS NOT NECESSARILY SUPPORTIVE OF OUTRIGHT UTI. IF PATIENT'S SYMPTOMS ARE PERSISTENT WOULD TREAT WITH ANTIBIOTIC BUT IF SHE IS FEELING IMPROVED WOULD SIMPLY FOLLOW- UP WITH PCP ADVISED. I CALLED PATIENT AND THERE WAS NO ANSWER AND MAILBOX IS FULL SO COULD NOT LEAVE A MESSAGE. - MARCIE DEXTER M.D. Discharge - Sign-Out/Discharge Documenting (check all that apply): Post-Discharge Follow Up - Discharge Plan Condition: Good Disposition: HOME Patient Education Materials: Hematuria (ED) Referrals: Darlyn Garcia MD [Primary Care Provider] - - Billing Disposition and Condition Condition: GOOD Disposition: Home
== END 2018-05-06 22:40 | disposition home or self-care (01) ==
LOC: UCEAST 21:14
DX: R31.9 Hematuria, unspecified (principal); R30.0 Dysuria
CPT/HCPCS: 81003; 84702; 87077; 87086; 87186; 99211; G0463

== ENCOUNTER 2018-09-30 14:37 | Emergency (ER) | payer OTHER ==
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
[2018-09-30] MEDS ORDERED: Methocarbamol TAB* 500 MG PO ONE (16:32)
[2018-09-30] MEDS ORDERED: Ibuprofen TAB* 400 MG PO ONE (16:32)
[2018-09-30] MEDS ORDERED: Dexamethasone TAB* 4 MG PO ONE (16:32)
[2018-09-30 18:05] VITALS: BP 112/78
== END 2018-09-30 18:04 | disposition home or self-care (01) ==
LOC: ED 14:37
DX: R07.89 Other chest pain (principal); M54.2 Cervicalgia; R51 Headache
CPT/HCPCS: 70450; 71120; 72125; 99282; A9270-GY; J8540

== ENCOUNTER 2019-03-24 10:50 | Emergency (ER) | payer SELFPAY ==
[2019-03-24 11:00] VITALS: BP 91/61
--- NOTE | 2019-03-24 11:30 | UC ---
Abdominal Pain Female HPI - HPI Summary HPI Summary: patient started her peirod yesterday, she placed a tampon at 8 pm and then this morning could not remove it. does have some menstrual cramping - History of Current Complaint Chief Complaint: UCGU Stated Complaint: PERSONAL Time Seen by Provider: 03/24/19 11:11 Hx Obtained From: Patient Hx Last Menstrual Period: currently ?: No Onset/Duration: Sudden Onset, Lasting Hours Timing: Intermittent Episodes Lasting: Severity Initially: Mild Severity Currently: None Pain Intensity: 0 Location: Suprapubic Radiates: No Associated Signs and Symptoms: Positive: Vaginal Bleeding Allergies/Adverse Reactions: Allergies Allergy/AdvReac Type Severity Reaction Status Date / Time No Known Allergies Allergy Verified 03/24/19 11:00 PMH/Surg Hx/FS Hx/Imm Hx Previously Healthy: Yes - Surgical History Surgical History: Yes Surgery Procedure, Year, and Place: 2014 - Family History Known Family History: Positive: None, Hypertension - positive to grandfather Family History: R & n/C - Social History Alcohol Use: Occasionally Substance Use Type: None Smoking Status (MU): Never Smoked Tobacco - Immunization History Most Recent Influenza Vaccination: 08/18/15 Most Recent Tetanus Shot: 07/14/15 Most Recent Pneumonia Vaccination: na Review of Systems All Other Systems Reviewed And Are Negative: Yes Gastrointestinal: Positive: Abdominal Pain Is Patient Immunocompromised?: No Physical Exam Triage Information Reviewed: Yes Appearance: Well-Appearing, Well-Nourished, Pain Distress Vital Signs: Initial Vital Signs Temp 97.8 F 03/24/19 10:57 Pulse 72 03/24/19 10:57 Resp 14 03/24/19 10:57 BP 91/61 03/24/19 10:57 Pulse Ox 100 03/24/19 10:57 Vital Signs Reviewed: Yes Eye Exam: Normal ENT Exam: Normal Dental Exam: Normal Neck exam: Normal Respiratory Exam: Normal Cardiovascular Exam: Normal Abdomen Description: Positive: CVA Tenderness (R) - neg, CVA Tenderness (L) - neg, Other: - Pelvic exam was unremarkable, menstrual flow noted no FB was noted Bowel Sounds: Positive: Present Abd Pain Female Course/Dx - Course Course Of Treatment: history obtained, exam performed ,meds reviewed, pelvic exam performed, - Differential Dx/Diagnosis Provider Diagnosis: Menstrual cramps Discharge - Sign-Out/Discharge Documenting (check all that apply): Patient Departure All imaging exams completed and their final reports reviewed: No Studies - Discharge Plan Condition: Stable Disposition: HOME Referrals: Darlyn Garcia MD [Primary Care Provider] - Additional Instructions: 1. there was no evidence of a tampon at this time 2. Pelvic exam was normal. - Billing Disposition and Condition Condition: STABLE Disposition: Home - Attestation Statements Provider Attestation: I did not see or exam this patient. I was available for consult.
== END 2019-03-24 11:30 | disposition home or self-care (01) ==
LOC: UCEAST 10:50
DX: N94.4 Primary dysmenorrhea (principal)
CPT/HCPCS: 99211; G0463